=== PATIENT | male | born 1970 | race Caucasian/White ===

== ENCOUNTER → 2019-11-22 14:08 | Outpatient (CLI) | payer OTHER, SELFPAY ==
[2019-11-22 15:23] LABS: Alanine Aminotransferase 63 IU/L (<50); Albumin 4.5 g/dL (3.5-5.0); Albumin Globulin Ratio 1.3 (1.0-2.8); Alkaline Phosphatase 60 U/L (38-126); Aspartate Aminotransferase 43 IU/L (17-59); BUN Creatinine Ratio 14.5 (6-22); Bilirubin Total 0.7 mg/dL (0.2-1.3); Blood Urea Nitrogen 16 mg/dL (9-20); Calcium 9.6 mg/dL (8.4-10.2); Carbon Dioxide 30 mmol/L (22-32); Chloride 101 mmol/L (98-107); Cholesterol 248 mg/dL (140-199); Estimated Glomerular Filt Rate > 60.0 mL/min (>60); Globulin 3.5 g/dL (1.7-4.1); Glucose 100 mg/dL (70-100); HDL Cholesterol 40 mg/dL (40-60); HEMOLYSIS < 15 (0-50); LDL Cholesterol Calculated 158 mg/dL (<100); Potassium 4.1 mmol/L (3.4-5.1); Sodium 140 mmol/L (137-145); Triglycerides 250 mg/dL (35-150)
[2019-11-22 16:43] LABS: Vitamin D 25 Hydroxy (D3) 41.9 ng/mL (30.0-100.0)
== END ==
PROVIDERS: PCP Student in an Organized Health Care Education/Training Program; Visit Provider Student in an Organized Health Care Education/Training Program
DX: E78.2 Mixed hyperlipidemia (principal); F10.21 Alcohol dependence, in remission; E55.9 Vitamin D deficiency, unspecified; Z13.220 Encounter for screening for lipoid disorders
CPT/HCPCS: 36415; 80053; 80061; 82306

== ENCOUNTER → 2022-11-23 16:14 | Outpatient (CLI) | payer OTHER, SELFPAY ==
--- NOTE | 2022-11-23 16:15 | DI.US.S_ITS ---
PROCEDURE: US SOFT TISSUE HEAD AND NECK INDICATIONS: SOFT TISSUE MASS ON RIGHT POSTERIOR NECK TECHNIQUE: Real-time scanning was performed of the neck region of interest, with image documentation. COMPARISON: None. FINDINGS: Grayscale color Doppler images of the patient directed palpable area of concern were acquired over the posterior neck. There is mild subcutaneous soft tissue edema. No organized fluid collection seen. No suspicious mass lesions. No evidence for hyperemia. IMPRESSION: Area of palpable concern over the posterior neck demonstrates diffuse subcutaneous soft tissue edema without organized fluid collection or suspicious mass lesion. Dictated by: Marbin Bender M.D. on 11/23/2022 at 17:58 Approved by: Marbin Bender M.D. on 11/23/2022 at 17:59
[2022-11-23 17:12] LABS: Alanine Aminotransferase 67 IU/L (<50); Albumin 4.4 g/dL (3.5-5.0); Albumin Globulin Ratio 1.2 (1.0-2.8); Alkaline Phosphatase 59 U/L (38-126); Aspartate Aminotransferase 62 IU/L (17-59); Bilirubin Total 0.8 mg/dL (0.2-1.3); Blood Urea Nitrogen 16 mg/dL (9-20); Carbon Dioxide 27 mmol/L (22-32); Chloride 101 mmol/L (98-107); Estimated Glomerular Filt Rate > 60 mL/min (>60); Globulin 3.6 g/dL (1.7-4.1); Glucose 106 mg/dL (70-100); Potassium 4.3 mmol/L (3.4-5.1); Sodium 136 mmol/L (137-145)
[2022-11-23 17:13] LABS: HEMOLYSIS 53 (0-50)
== END ==
PROVIDERS: PCP Student in an Organized Health Care Education/Training Program; Referring Provider Student in an Organized Health Care Education/Training Program; Visit Provider Student in an Organized Health Care Education/Training Program
DX: M79.89 Other specified soft tissue disorders (principal); E78.2 Mixed hyperlipidemia; F10.21 Alcohol dependence, in remission
CPT/HCPCS: 36415; 76536; 80053

== ENCOUNTER 2022-12-01 09:15 | Day surgery (SDC) | payer OTHER, SELFPAY ==
--- NOTE | 2022-12-01 | PATH_ITS ---
[facility] Accession Number: [id number] No. of containers..01 Tissue . 01 Material submitted: . colon - ASCENDING COLON . 01 Diagnosis: Ascending Colon, Biopsy: Tubular adenoma, two fragments. MRV 12/07/2022 1345 Local . 01 Electronically signed: . Judi Kuhn MD, Pathologist NPI- [id number] . 01 Gross description: . ASCENDING COLON: Received in formalin are 2 fragment(s) of wang, soft tissue measuring 0.2 x 0.2 x 0.1 cm to 0.1 x 0.1 x 0.1 cm submitted entirely in 1 cassette(s) /CPE 12/02/2022 0509 Local . 01 Pathologist provided ICD-10: D12.2 . 01 CPT . 683855 Specimen Comment: A courtesy copy of this report has been sent to [phone] Performed at: 01 [facility] [address] [place] [address], [place], [place] [id number] MD Alexys Keyes MD Phone: [phone]
[2022-12-01 09:26] VITALS: BP 141/89; PULSE 74; RESP 16; TEMP 36.4; O2SAT 100; BMI 32.1
[2022-12-01] MEDS: LACTATED RINGERS 1,000 ML 200 ML IV (09:46)
--- NOTE | 2022-12-01 10:25 | PM.HP.1 ---
History of Present Illness History of Present Illness Date Patient Seen: 12/01/22 Time Patient Seen: 10:25 Chief complaint: Screening Colonoscopy Narrative: The patient presents for colorectal screening. They have never had any previous examination for such. No personal or family history of colon cancer. On further history denies any recent gastrointestinal symptoms. No nausea, vomiting, abdominal pain, loss of appetite, unexplained weight loss, change in bowel habits, or blood per rectum. Patient History Medical History Anxiety (~2009) Chicken pox Fractures GERD (gastroesophageal reflux disease) Hyperlipidemia Family & Social History Family History Father Heart disease Hypertension High cholesterol Social History: household members spouse lives independently Yes Tobacco & Substance use: Smoking Status Never smoker alcohol intake current Substance Use Type does not use Meds Home Medications and Allergies Allergies Allergy/AdvReac Type Severity Reaction Status Date / Time Sulfa (Sulfonamide Allergy Mild Verified 11/16/22 13:03 Antibiotics) [SULFA (SULFONAMIDE ANTIBIOTICS)] Exam Vital Signs (past 8 hours): - 12/01/22 09:26 Temperature 97.6 F Pulse Rate 74 Respiratory Rate 16 Blood Pressure 141/89 H Pulse Oximetry 100 Oxygen Delivery Method Room Air Oxygen Delivery Method Room Air Narrative Exam Narrative: General adult male alert oriented no acute distress Assessment & Plan Assessment & Plan narrative: The patient requires colorectal screening and colonoscopy is recommended. Technical details were discussed. Risks, benefits, alternatives explained. Risks including but not limited to myocardial infarction, aspiration, bleeding, pain, missed lesion, incomplete examination, need for further radiographic studies, colonic perforation, and need for major abdominal surgery were discussed. All questions were answered to their satisfaction, and they are in agreement with this plan. Time Spent With Patient Critical Care time: I spent a total of [] minutes of critical care time on this patient's care today; this time is exclusive of procedural time.
--- NOTE | 2022-12-01 10:26 | PM.OP.COLON ---
Operative Date/Time/Diagnoses Date of procedure: 12/01/22 Time of procedure: 10:26 Pre-op diagnosis: Colorectal screening Post-op diagnosis: same Procedure & Clinicians Study performed: Colonoscopy and polypectomy Same procedure as scheduled: Yes Indications: Colorectal screening Surgeon: Evangelista Cabrera Procedure Notes Procedure in detail: The history and physical was performed/updated and the patient is ASA class is 2. The procedure was discussed in detail with the patient. Potential risks complications including infection, bleeding, missed diagnosis, perforation, need for surgery, and were explained. Their questions were answered and informed consent was obtained. Patient was brought to the procedure room and placed standard monitoring equipment. The patient's vital signs were monitored continuously throughout the entire procedure. Prior to starting time-out was performed. The patient was placed in the left lateral recumbent position. Procedural sedation was administered by anesthesia. Examination began with a thorough inspection of the perianal area there was no evidence of fissures, fistulae, external hemorrhoids or cutaneous malignancy. The colonoscopy scope was then placed into the anal canal and was advanced to the cecum, which was identified by the ileocecal valve, the appendiceal orifice and the confluence of the taenia. The scope was then slowly withdrawn examining colon thoroughly in all directions, irrigating it of any residual stool. 1. Within the ascending colon there were 2 polyps of approximately 5 mm each which were removed with cold snare. 2. Internal hemorrhoids noted on retroflexion The patient tolerated the procedure well. They will be discharged once criteria are met. The prep was of fair quality. The withdrawl time was 10 minutes. Specimen(s): other (Ascending colon polyps) Impression: Colonic polyps Post-procedure Recommendations: High fiber diet Plan for aftercare: Follow-up is dependent on pathology findings Disposition: same day surgery
[2022-12-01 10:54] VITALS: BP 135/80; PULSE 74; RESP 19; TEMP 36.3; O2SAT 96
[2022-12-01 11:01] VITALS: BP 126/87; PULSE 77; RESP 13; O2SAT 95
[2022-12-01 11:05] VITALS: BP 123/87; PULSE 72; RESP 11; TEMP 36.5; O2SAT 96
[2022-12-01 11:08] VITALS: BP 137/86; PULSE 67; RESP 11; O2SAT 96
== END 2022-12-01 11:24 | disposition home or self-care (01) ==
PROVIDERS: PCP Student in an Organized Health Care Education/Training Program; Referring Provider Surgery; Visit Provider Surgery
PROC: 0DJD8ZZ Inspection of Lower Intestinal Tract, Via Natural or Artificial Opening Endoscopic (ICD-10-PCS; CPT 45378; principal; 2022-12-01 10:15)
DX: Z12.11 Encounter for screening for malignant neoplasm of colon (principal); K64.8 Other hemorrhoids; D12.2 Benign neoplasm of ascending colon
CPT/HCPCS: 45385; J2250; J2704; J3010

== ENCOUNTER → 2022-12-08 16:09 | Outpatient (CLI) | payer OTHER, SELFPAY | PROVIDERS: PCP Student in an Organized Health Care Education/Training Program; Visit Provider Surgery | DX: M79.89 Other specified soft tissue disorders (principal) | CPT/HCPCS: 10021; 87070; 87075; 87205 ==

== ENCOUNTER → 2022-12-22 15:57 | Outpatient (CLI) | payer OTHER, SELFPAY ==
--- NOTE | 2022-12-22 15:58 | DI.MRI.S_ITS ---
PROCEDURE: MR ORBITS FACE NECK WO/W CON INDICATIONS: Expanding neck mass. Stat read requested. TECHNIQUE: Sagittal/axial/coronal T1 spin echo and STIR. After the administration of contrast, axial/coronal/sagittal T1 fast spin echo with fat saturation through the neck. COMPARISON: [facility], CT, SOFT TISSUE NECK W CONTRAST, 03/19/2011, 10:36. FINDINGS: Skull Base: The visualized intracranial contents, skull, and orbits are unremarkable. Small left maxillary sinus retention cyst Pharynx and Larynx: The nasopharyngeal airway is patent and midline. Parapharyngeal soft tissues including palatine tonsils and base of the tongue are normal. Retropharyngeal space unremarkable. Normal appearance of the false and true vocal cords. Muscles and Fascial Planes: In the posterior paraspinal subcutaneous tissue, there is a well-defined lipoma measuring 3.1 x 4.6 x 6.5 cm, previously 2.8 x 0.6 cm in 2010 Lymph Nodes: No evidence of adenopathy. Vasculature: Unremarkable. Submandibular and Parotid Glands: Normal in size and attenuation. Thyroid: Unremarkable. No enlarged or calcified nodules. Bones: No acute fracture. No osteolytic or blastic lesion is evident. Normal bone mineralization. Lung Apices: The visualized lung apices are clear. IMPRESSION: 1. Enlarging benign lipoma in the right paramedian neck Approved by: Ian Cerda M.D. on 12/22/2022 at 16:24
== END ==
PROVIDERS: PCP Student in an Organized Health Care Education/Training Program; Referring Provider Surgery; Visit Provider Surgery
DX: D17.0 Benign lipomatous neoplasm of skin and subcutaneous tissue of head, face and neck (principal); M79.89 Other specified soft tissue disorders
CPT/HCPCS: 70543

== ENCOUNTER 2023-02-23 12:02 | Day surgery (SDC) | payer OTHER, SELFPAY ==
[2023-02-23] VITALS (7 sets, daily range): BP systolic 124–157; BP diastolic 71–92; PULSE 68–75; RESP 10–20; TEMP 36.5–36.7; O2SAT 96–99; BMI 32.1
--- NOTE | 2023-02-23 | PATH_ITS ---
[facility] Accession Number: [id number] No. of containers..01 Tissue . 01 Material submitted: . neck - RIGHT NECK . 01 Clinical history: . LIPOMA . 01 Diagnosis: Right Neck, Excision: Mature fibroadipose tissue, consistent with lipoma. MRV 02/26/2023 1328 Local . 01 Electronically signed: . Dakotah Denise MD, Dermatopathologist NPI- [id number] . 01 Gross description: . The specimen is received in formalin labeled with the patient's name, , and right neck lipoma, and consists of a yellow lobulated soft tissue fragment measuring 8.2 x 4.1 x 3.2 cm. The external surface is inked blue and sectioning reveals a yellow, homogenous, unremarkable cut surface. Music Teacher sections are submitted in cassettes A1-A3. ([id number]) /KEDAR 02/24/2023 1118 Local . 01 Pathologist provided ICD-10: D17.9 . 01 CPT . 879718 Specimen Comment: A courtesy copy of this report has been sent to [facility] Performed at: 01 [facility] [address] [place] [address], [place], [place] [id number] MD Alexys Keyes MD Phone: [phone]
[2023-02-23] MEDS: LACTATED RINGERS 1,000 ML 42 ML IV (12:35)
--- NOTE | 2023-02-23 13:48 | PM.PREOP ---
Pre-operative Note Interval Note History & Physical reviewed/Exam performed by Physician: Yes Changes to H&P: No
[2023-02-23] MEDS: CEFAZOLIN 2 GM/100 ML PREMIX 100 ML IV (14:29)
--- NOTE | 2023-02-23 14:48 | SUR.OPER ---
Lateral on a keenan bag, head on pillow, gel axillary roll in place, bottom leg bent with gel pad under knee to foot, upper leg straight and supported with pillows. Upper arm supported by pillows and secured over bottom arm to padded arm board. Safety belt at hip, tape over blanket lower legs. Safety belt added to lower legs.
[2023-02-23] MEDS: BUPIVACAINE 0.25% (PF) 30 ML, EPINEPHrine 0.15 MG INJ (14:58)
--- NOTE | 2023-02-23 15:46 | P.OP_ITS ---
Operative Date/Time/Diagnoses Date of procedure: 02/23/23 Time of procedure: 15:46 Pre-op diagnosis: Lipoma right posterior neck Post-op diagnosis: same Procedure & Clinicians Procedure: Right neck lipoma excision Same procedure as scheduled: Yes Surgeon: Meg Hankins Building Service Worker: Ramses Peres Anesthesia Type: General Operative Notes Findings: Approximately 12 by 6 x 4 cm well-circumscribed lipoma was excised. Procedure in detail: Patient was taken to the operating room and placed in a left lateral decubitus position with a beanbag surrounding. A time-out was performed bilateral SCDs were placed and preoperative antibiotics were provided. Initial attempts to proceed with conscious sedation were made. The area of the right posterior neck was prepped and draped in the usual sterile fashion. And lidocaine was infused around the lipoma. Patient being a large strong man was moving just a little bit but there was concern that if he moved more than he was it would be difficult to keep him safely strapped and still and therefore the decision was made to place an LMA and convert to a general anesthesia keeping in mind this likely would also decrease the amount of time for him in the operating room. After this was done the remainder of the local anesthetic was infused and an incision was made overlying the bulge using a 10. Blade scalpel. The scalpel was used to go through the skin and into the subcutaneous tissues. At this point a plane was carefully identified and using a combination hemostats and Metzenbaum scissors the plane around the lipoma was identified and loosened and entered. Slowly the lipoma was freed from the subcutaneous tissue. There was sticky outer capsule that made this process somewhat longer than average but with a combination of blunt and sharp dissection the lipoma was removed in 1 piece. There were few small fingers that were also removed with the specimen overall the general size was approximately 12-15 cm in maximal length the po sterior portion of the lipoma directly abutted the posterior neck muscles and the fascia of those muscles was left down although entered in few small spaces small amount of bleeding was encountered but easily controlled with electrocautery. After the lipoma was removed in total the remainder of the local anesthetic was injected around the area and into the muscles and fascia of the wound base. The space was then closed with interrupted 3-0 Vicryl sutures and the subcutaneous layer was closed with interrupted 3-0 Vicryl sutures as well. The skin was then closed with a running Monocryl and dressed with skin glue. Patient tolerated the procedure well and went in good condition to the postoperative care unit there were no complications and the EBL was minimal.
== END 2023-02-23 16:49 | disposition home or self-care (01) ==
PROVIDERS: PCP Student in an Organized Health Care Education/Training Program; Referring Provider Surgery; Visit Provider Surgery
PROC: (CPT 21552; principal; 2023-02-23 13:15)
DX: D17.0 Benign lipomatous neoplasm of skin and subcutaneous tissue of head, face and neck (principal)
CPT/HCPCS: 21552; J0171; J0690; J2250; J2405; J2704; J3010

== ENCOUNTER → 2024-04-25 15:35 | Outpatient (CLI) | payer OTHER, SELFPAY ==
--- NOTE | 2024-04-25 15:37 | DI.RAD.S_ITS ---
PROCEDURE: XR CHEST 2V INDICATIONS: new hypertension TECHNIQUE: 2 views of the chest were acquired. COMPARISON: None. FINDINGS: Surgical changes and devices: None. Lungs and pleura: Lungs are clear. No pleural effusions or pneumothorax. Mediastinum: Mediastinal contours are normal. Heart size is normal. Bones and chest wall: No suspicious bony abnormalities. Soft tissues appear unremarkable. IMPRESSION: No acute pulmonary process. Dictated by: Sharron Smith M.D. on 04/25/2024 at 16:28 Approved by: Sharron Smith M.D. on 04/25/2024 at 16:28
--- NOTE | 2024-04-25 15:41 | EKG_ITS ---
[address] [address] Test Date: 2024-04-25 Pat Name: Michael Anderson Department: Room: Gender: Male Cloth Neutralizer: GONZALEZ : 1970 Requested By: Order Number: [id number] Reading MD: Brannon Whitfield Measurements Intervals [place] Rate: 60 P: 7 SC: 162 QRS: -18 QRSD: 96 T: -3 QT: 414 QTc: 414 Interpretive Statements Normal sinus rhythm Minimal voltage criteria for LVH, may be normal variant ( R in aVL ) Electronically Signed On 04-25-2024 18:26:46 PDT by Brannon Whitfield
[2024-04-25 17:04] LABS: Hematocrit 46.3 % (41-53); Hemoglobin 16.1 g/dL (13.5-17.5); Mean Corpuscular HGB Conc 34.7 % (30-36); Mean Corpuscular Hemoglobin 33.2 PG (26-34); Mean Corpuscular Volume 95.8 fL (80-100); Platelet Count 183 X10^3/uL (150-400); Red Blood Cell Count 4.83 X10^6/uL (4.5-5.9); Red Cell Distribution Width 12.6 % (11.6-14.8); White Blood Cell Count 5.7 X10^3/uL (4.5-11.0)
[2024-04-25 17:44] LABS: Alanine Aminotransferase 90 IU/L (<50); Albumin 4.7 g/dL (3.5-5.0); Albumin Globulin Ratio 1.4 (1.0-2.8); Alkaline Phosphatase 58 U/L (38-126); Aspartate Aminotransferase 54 IU/L (17-59); BUN Creatinine Ratio 11.7 (6-22); Blood Urea Nitrogen 14 mg/dL (9-20); Calcium 9.4 mg/dL (8.4-10.2); Carbon Dioxide 28 mmol/L (22-32); Chloride 105 mmol/L (98-107); Cholesterol 225 mg/dL (140-199); Estimated Glomerular Filt Rate > 60 mL/min (>60); Globulin 3.4 g/dL (1.7-4.1); Glucose 93 mg/dL (70-100); HDL Cholesterol 56 mg/dL (40-60); HEMOLYSIS < 15 (0-50); LDL Cholesterol Calculated 152 mg/dL (<100); Potassium 4.7 mmol/L (3.4-5.1); Sodium 140 mmol/L (137-145); Total Protein 8.1 g/dL (6.3-8.2); Triglycerides 84 mg/dL (35-150)
[2024-04-25 18:09] LABS: TSH w/ Reflex to FT4 2.06 uIU/mL (0.47-4.68)
[2024-04-25 18:11] LABS: Prostate Specific Antigen Scrn 0.671 ng/mL (0.1-4.0)
== END ==
PROVIDERS: PCP Internal Medicine; Referring Provider Internal Medicine; Visit Provider Internal Medicine
DX: Z12.5 Encounter for screening for malignant neoplasm of prostate (principal); I10 Essential (primary) hypertension; G43.109 Migraine with aura, not intractable, without status migrainosus; E78.2 Mixed hyperlipidemia
CPT/HCPCS: 36415; 71046; 80053; 80061; 84443; 85027; 93005; G0103

== ENCOUNTER → 2024-11-17 08:24 | Outpatient (CLI) | payer OTHER, SELFPAY ==
[2024-11-17 09:05] LABS: Hematocrit 47.4 % (41-53); Hemoglobin 16.5 g/dL (13.5-17.5); Mean Corpuscular HGB Conc 34.8 % (30-36); Mean Corpuscular Hemoglobin 32.8 PG (26-34); Mean Corpuscular Volume 94.3 fL (80-100); Platelet Count 192 X10^3/uL (150-400); Red Blood Cell Count 5.03 X10^6/uL (4.5-5.9); Red Cell Distribution Width 12.4 % (11.6-14.8); White Blood Cell Count 3.7 X10^3/uL (4.5-11.0)
[2024-11-17 09:25] LABS: Alanine Aminotransferase 78 IU/L (<50); Albumin 4.9 g/dL (3.5-5.0); Albumin Globulin Ratio 1.5 (1.0-2.8); Alkaline Phosphatase 57 U/L (38-126); Aspartate Aminotransferase 50 IU/L (17-59); BUN Creatinine Ratio 9.6 (6-22); Bilirubin Total 0.7 mg/dL (0.2-1.3); Blood Urea Nitrogen 11 mg/dL (9-20); Calcium 9.6 mg/dL (8.4-10.2); Carbon Dioxide 27 mmol/L (22-32); Chloride 103 mmol/L (98-107); Cholesterol 248 mg/dL (140-199); Estimated Glomerular Filt Rate > 60 mL/min (>60); Globulin 3.3 g/dL (1.7-4.1); Glucose 103 mg/dL (70-100); HDL Cholesterol 62 mg/dL (40-60); HEMOLYSIS < 15 (0-50); LDL Cholesterol Calculated 159 mg/dL (<100); Potassium 4.2 mmol/L (3.4-5.1); Sodium 139 mmol/L (137-145); Total Protein 8.2 g/dL (6.3-8.2); Triglycerides 135 mg/dL (35-150)
[2024-11-17 09:58] LABS: Prostate Specific Antigen Scrn 0.886 ng/mL (0.1-4.0)
== END ==
PROVIDERS: PCP Internal Medicine; Referring Provider Internal Medicine; Visit Provider Internal Medicine
DX: I10 Essential (primary) hypertension (principal); E78.2 Mixed hyperlipidemia; Z12.5 Encounter for screening for malignant neoplasm of prostate
CPT/HCPCS: 36415; 80053; 80061; 85027; G0103